=== PATIENT | male | born 1980 | race Caucasian/White ===

== ENCOUNTER 2016-09-29 23:22 | Emergency (ER) | payer SELFPAY ==
[~2016-09-29] VITALS: Ht 188 cm; Wt 136.4 kg
[2016-09-29 23:26] VITALS: Ht 188 cm; Wt 136.4 kg
[2016-09-30] MEDS ORDERED: NORT10CA2 PO (00:19)
--- NOTE | 2016-09-30 00:24 | ERD ---
ER Documentation Chief Complaint Date/Time DATE: 09/30/16 TIME: 00:21 Chief Complaint NUMBNESS TO FINGERS & TOES SINCE SAT. DENIES CP/SOB. HPI 36-year-old male presents to emergency department for complaints of numbness and tingling of the tips of the toes and the fingers that started 2 days ago. Patient denies any chest pain, patient denies any headache. Patient denies any paralysis, patient denies any numbness and tingling in other parts of the body. Patient denies any dizziness. Patient denies any shortness of breath. ROS All systems reviewed and are negative except as per history of present illness. Medications Home Meds Active Scripts Nortriptyline Hcl* (Nortriptyline Hcl*) 10 Mg Capsule, 10 MG PO HS, #20 CAP Prov:KAVON MANDUJANO NP 09/30/16 Allergies Allergies: Coded Allergies: No Known Allergy (Unverified , 09/29/16) PMhx/Soc Medical and Surgical Hx: pt denies Medical Hx, pt denies Surgical Hx Hx Alcohol Use: Yes Hx Substance Use: Yes Hx Tobacco Use: Yes Smoking Status: Current some day smoker FmHx Family History: No coronary disease, No diabetes, No other Physical Exam Vitals Vital Signs Date Time Temp Pulse Resp B/P Pulse Ox O2 Delivery O2 Flow Rate FiO2 09/29/16 23:26 98.7 85 18 135/84 98 Physical Exam GENERAL: The patient is well developed and appropriate for usual state of health, in no apparent distress. CHEST: Clear to auscultation bilaterally. There are no rales, wheezes or rhonchi. HEART: Regular rate and rhythm. No murmurs, clicks, rubs or gallops. No S3 or S4. ABDOMEN: Soft, nontender and nondistended. Good bowel sounds. No rebound or guarding. No gross peritonitis. No gross organomegaly or masses. No Dorado sign or McBurney point tenderness. BACK: No midline or flank tenderness. EXTREMITIES: Good circulation, movement of the joints of fingers of bilateral hands and toes of bilateral foot. Equal pulses bilaterally. There is no peripheral clubbing, cyanosis or edema. No focal swelling or erythema. Full range of motion. Grossly neurovascularly intact. NEURO: Alert and oriented. Cranial nerves 2-12 intact. Motor strength in all 4 extremities with 5/5 strength. Sensation grossly intact. Normal speech and gait. SKIN: There is no apparent rash or petechia. The skin is warm and dry. HEMATOLOGIC AND LYMPHATIC: There is no evidence of excessive bruising or lymphedema. No gross cervical, axillary, or inguinal lymphadenopathy. Procedures/MDM Medical decision making: Patient's symptoms of numbness and tingling in the toes and fingers nonspecific at this time, possible anxiety, possible nerve pain , further evaluation by primary care doctor was necessary, possible workup for vitamins, possible autoimmune disorder. At this time, no symptoms of any neurovascular compromise. Thorough reevaluation of the affected areas was done, patient has good circulation and movement of affected joints. Patient was given nortriptyline, is advised to follow-up with primary care doctor in 2 days for reevaluation of symptoms. Patient was advised to return to emergency department for worsening numbness and tingling, severe headache, syncopal episodes, dizziness, chest pain, or worsening symptoms. Otherwise, advised to follow-up with primary care doctor in 2 days for reevaluation of symptoms and further management and treatment workup. Disposition: Home. Stable Departure Diagnosis: Primary Impression: Paresthesias Condition: Stable Patient Instructions: Numbness Additional Instructions: see primary care doctor for further workup ffup and management KAVON MANDUJANO NP Sep 30, 2016 00:24
== END 2016-09-30 00:15 | disposition home or self-care (01) ==
LOC: FTE 23:22
DX: R20.2 Paresthesia of skin (principal); F17.210 Nicotine dependence, cigarettes, uncomplicated
CPT/HCPCS: 99283